=== PATIENT | male | born 1985 | race Caucasian/White ===

== ENCOUNTER 2020-08-16 16:31 | Emergency (ER) | payer OTHER ==
[~2020-08-16] VITALS: Ht 162.6 cm; Wt 90.0 kg
[2020-08-16 18:30] VITALS: BP 150/105
== END 2020-08-16 21:06 | disposition home or self-care (01) ==
LOC: ER 16:31
DX: M79.632 Pain in left forearm (principal)
CPT/HCPCS: 29125; 73090; 73110; 99284